=== PATIENT | female | born 1985 | race Caucasian/White ===

== ENCOUNTER 2017-01-06 17:27 | Emergency (ER) | payer OTHER ==
--- NOTE | ~2017-01-06 | EHP ---
ER History and Physical [address] [place]. [address] NAME: IVELISSE ISBELL : 85 STATUS : [facility] PAT#: [id number] AGE: 31 ADM/REG DATE : 01/06/17 MR#: [id number] REPORT SERV DATE: 01/07/17 DICTATED BY: IVON SOOD DATE: 01/06/17 REPORT STATUS : Draft TRANSCRIBED BY: SHARMILA DATE: 01/06/17 ADDENDUM: Ivelisse is a 31-year-old female came in for right lower quadrant abdominal pain. This is an addendum to the chart. Her abdominal and pelvis CT scan which was noncontrasted was not conclusive. The appendix was partially visualized, did not appear to be diseased; however, there was a large amount of stool filled bowel loops in apposition to each other right over the appendix. There was no obstructive pattern, but the radiologist could not fully comment on the CAT scan given the presence of these bowel loops and so I did go and repeat the examination on Ms Isbell. She lens fabricating machine tender to palpation right lower quadrant, but her belly is soft. She has not have a surgical abdomen at this point. I had a long discussion with her and her friend and herself in regard to where we were with this visit. It is possible and I informed them that she could still have early appendicitis, but there was no evidence of rupture. She had normal laboratory evaluation. I offered her admission into the hospital for serial abdominal exams and possible repeat scan in the morning and the patient and family wanted to be discharged, they will follow up with Dr. Juan C Burgess tomorrow or say that they will return and the understand the risk of worsening and understand that I have not definitively told them that they do not have appendicitis, they will return if no better or if worse. I am going to send her home with some mag citrate and some pain medicine may be see if it is relieving constipation will have any effect on her abdominal pain. Her condition at time of my dictation is stable. CMR/MODL Ivon Sood M.D. / [id number] CC: Juan C Burgess M.D.
[2017-01-06 15:08] LABS: BASOPHILS 0 %; EOSINOPHILS 0.1 %; EOSINOPHILS ABSOLUTE 0.01 10/3/uL (0.0-0.53); ER CBC TAT 0 Hrs 05 Mins; HEMATOCRIT 39.7 % (36.0-48.0); HEMOGLOBIN 13.8 g/dL (12.0-16.0); IMMATURE GRANULOCYTES 0.1 %; IMMATURE GRANULOCYTES ABSOLUTE 0.01 10/3/uL (0.0-0.11); LYMPHOCYTES 3.3 %; LYMPHOCYTES ABSOLUTE 0.26 10/3/uL (0.67-4.30); MEAN CORPUS HGB CONC 34.8 g/dL (32.0-36.0); MEAN CORPUSCULAR HEMOGLOB 33.2 pg (26.0-34.0); MEAN CORPUSCULAR VOLUME 95.4 fL (80-100); MEAN PLATELET VOLUME 11.6 fL (9.2-13.0); MONOCYTES 2.7 %; MONOCYTES ABSOLUTE 0.21 10/3/uL (0.21-1.20); NEUTROPHILS 93.8 %; NEUTROPHILS ABSOLUTE 7.32 10/3/uL (2.02-8.40); PLATELET COUNT 173 10/3/uL (150-400); RBC DISTRIBUTION WIDTH 12.9 % (12.0-16.0); RED CELL COUNT 4.16 10/6/uL (4.0-5.6); WHITE BLOOD CELLS 7.8 10/3/uL (4.5-10.5)
[2017-01-06 15:09] LABS: MANUAL DIFF NO %
[2017-01-06 15:23] LABS: A/G RATIO 1.5 (0.7-1.9); ALBUMIN 4.4 G/DL (3.5-5.0); ALKALINE PHOSPHATASE 55 U/L (45-117); BUN (BLOOD UREA NITROGEN) 10 MG/DL (6-23); CALCIUM, SERUM 9.2 MG/DL (8.5-10.4); CHLORIDE, SERUM 104 MMOL/L (96-112); CO2 (CARBON DIOXIDE) 29 MMOL/L (24-34); CREATININE 0.69 MG/DL (0.55-1.02); GFR AFRICAN AMERICAN 134 ML/MIN (>=60); GFR NON AFRICAN AMERICAN 116 ML/MIN (>=60); GLOBULIN 2.9 G/DL (2.5-4.1); GLUCOSE, SERUM 100 MG/DL (60-99); POTASSIUM, SERUM 3.8 MMOL/L (3.5-5.3); SGOT(AST) 11 U/L (5-40); SGPT(ALT) 15 U/L (5-65); SODIUM, SERUM 139 MMOL/L (135-148); TOTAL BILIRUBIN 0.7 MG/DL (0-1.2); TOTAL PROTEIN 7.3 G/DL (6.0-8.5)
[~2017-01-06 17:27] MED LIST: BIRTH CONTROL PILL
== END 2017-01-06 18:50 | disposition home or self-care (01) ==
LOC: ER 17:27
PROVIDERS: Emergency Medicine
DX: K59.00 Constipation, unspecified (principal); Z90.710 Acquired absence of both cervix and uterus; Z98.890 Other specified postprocedural states; Z91.011 Allergy to milk products
CPT/HCPCS: 74176; 80053; 81001; 83690; 84703; 85025; 96374; 96375; 99284; A9270-GY; J1885; J2405; J3010